=== PATIENT | female | born 1995 | race African-American/Black ===

== ENCOUNTER 2018-06-21 09:18 | Outpatient (CLI) | payer MEDICAID, SELFPAY ==
[2018-06-21 09:50] LABS: Abs Immature Grans 0.02 k/cumm (0.0-0.09); Absolute Basophil Count 0.02 k/cumm (0.0-0.2); Absolute Eosinophil Count 0.09 k/cumm (0.0-0.7); Absolute Monocyte Count 0.57 k/cumm (0.11-0.7); Absolute Neutrophil Count 5.74 k/cumm (1.2-6.7); Basophils % 0.3; Eosinophils % 1.2; HCT 37.8 % (36.0-46.0); Immature Grans % 0.3; Lymphocytes % 14.6; Mean Corp. HGB Concentration 31.7 g/dL (32.0-36.0); Mean Corpuscular Hemoglobin 25.1 pg (27.0-33.0); Mean Corpuscular Volume 78.9 fL (80-95); Mean Platelet Volume 11.8 fL (8.0-11.0); Monocytes % 7.6; Platelet Count 200 x1000/uL (130-400); RBC 4.79 m/cumm (4.00-5.20); RBC Distribution Width 13.6 % (11.7-14.6); Reticulocyte 1.3 % (0.5-2.4); White Blood Cell Count 7.54 k/cumm (4.4-10.8)
[2018-06-21 10:02] LABS: ALT 22 U/L (12-78); AST 14 U/L (15-37); Albumin 3.6 g/dL (3.4-5.0); Alkaline Phosphatase 73 U/L (46-116); Anion Gap 10.8 mmol/L (3-11); BUN 13 mg/dL (7-18); Bilirubin, Total 0.4 mg/dL (0.2-1.0); CO2 24.2 mmol/L (21.0-32.0); CREATININE 0.85 mg/dL (0.55-1.02); Calcium 8.5 mg/dL (8.5-10.1); Chloride 105 mmol/L (98-107); Glucose 95 mg/dL (70-100); LDH 142 U/L (81-234); Potassium 3.7 mmol/L (3.5-5.1); Sodium 140 mmol/L (136-145); Total Protein 6.3 g/dL (6.4-8.2)
== END 2018-06-21 09:19 ==
PROVIDERS: PCP Nurse Practitioner Family; Visit Provider Internal Medicine Hematology & Oncology
DX: D69.41 Evans syndrome (principal)
CPT/HCPCS: 36415; 80053; 83615; 85025; 85045

== ENCOUNTER 2018-07-19 10:44 | Emergency (ER) | payer MEDICAID, SELFPAY ==
[2018-07-19 10:48] VITALS: BP 123/98; PULSE 84; RESP 16; TEMP 36.6; O2SAT 99
--- NOTE | 2018-07-19 10:58 | DI.REPORT_ITS ---
SYMPTOMS/DIAGNOSIS: LT LOWER PELVIC PAIN PELVIC ULTRASOUND: A transabdominal and transvaginal examination was carried out. The uterus measures 9.3 cm in length, 4.4 cm in height and 5.3 cm in width with an endometrial stripe thickness of 7.3 mm. The right ovary measures 3.6 x 2.3 x 3.5 cm. The left ovary measures 4.3 x 3.0 x 3.6 cm. A small quantity of periovarian and cul-de-sac fluid is demonstrated. The kidneys are unremarkable. SUMMARY: Aside from a small amount of periovarian and cul-de-sac fluid, the examination is unremarkable.
--- NOTE | 2018-07-19 11:48 | DI.RPTCT_ITS ---
SYMPTOMS/DIAGNOSIS: LEFT LOWER QUADRANT ABDOMINAL PAIN, REPRODUCIBLE, NEGATIVE VAGINAL US CT EXAMINATION OF THE ABDOMEN AND PELVIS: The study was carried out with intravenous administration of 100 cc of Omnipaque 350 and oral ingestion of dilute barium. The lung bases are unremarkable. The liver and gallbladder are unremarkable. The pancreas is intact. Organomegaly is demonstrated. The kidneys and adrenals appear unremarkable. There is no evidence of bowel obstruction. No localized bowel abnormality is seen. The appendix is normal. The reproductive organs as visualized appear intact. The bladder is normal. A small quantity of free pelvic fluid is demonstrated. There is no evidence of intraperitoneal free air. There is no evidence of an aortic aneurysm. A tiny fat-containing umbilical hernia is demonstrated. The bony structures are unremarkable. There is a region of increased absorption projected over the subcutaneous fat in the mid portion of the lumbar spine, which could be related to a contusion. The examination is otherwise unremarkable. SUMMARY: Splenomegaly is demonstrated. There is a small quantity of free fluid in the pelvis. A nonspecific region of increased absorption is noted in the subcutaneous fat overlying the mid lumbar region.
[2018-07-19] MEDS: Normal Saline 1,000 ML 1000 ML IV (11:55)
[2018-07-19] MEDS: Omnipaque 350 MG/ML 50 ML BTL IJ (11:56)
[2018-07-19] MEDS: Breeza Beverage 473 ML BTL PO ×2 (11:56)
[2018-07-19 11:59] LABS: Abs Immature Grans 0.02 k/cumm (0.0-0.09); Absolute Basophil Count 0.02 k/cumm (0.0-0.2); Absolute Eosinophil Count 0.06 k/cumm (0.0-0.7); Absolute Lymphocyte Count 1.23 k/cumm (1.2-3.4); Absolute Monocyte Count 0.57 k/cumm (0.11-0.7); Absolute Neutrophil Count 5.78 k/cumm (1.2-6.7); Basophils % 0.3; Eosinophils % 0.8; HCT 35.1 % (36.0-46.0); HGB 10.9 g/dL (12.0-15.5); Immature Grans % 0.3; Mean Corp. HGB Concentration 31.1 g/dL (32.0-36.0); Mean Corpuscular Hemoglobin 23.7 pg (27.0-33.0); Mean Corpuscular Volume 76.5 fL (80-95); Mean Platelet Volume 12.6 fL (8.0-11.0); Monocytes % 7.4; Neutrophils % 75.2; Platelet Count 202 x1000/uL (130-400); RBC 4.59 m/cumm (4.00-5.20); RBC Distribution Width 14.6 % (11.7-14.6); White Blood Cell Count 7.68 k/cumm (4.4-10.8)
[2018-07-19 12:04] LABS: Bilirubin Negative (Negative); Blood Negative (Negative); Clarity Clear; Glucose Negative (Negative); Ketones Negative (Negative); Leukocyte Esterase Negative (Negative); Nitrite Negative (Negative); Specific Gravity 1.025 (1.005-1.025); Urobilinogen 0.2 EU/dL (Up TO 0.2)
[2018-07-19 12:11] LABS: ALT 18 U/L (12-78); AST 12 U/L (15-37); Albumin 3.4 g/dL (3.4-5.0); Alkaline Phosphatase 65 U/L (46-116); BUN 15 mg/dL (7-18); Bilirubin, Total 0.5 mg/dL (0.2-1.0); CREATININE 0.73 mg/dL (0.55-1.02); Calcium 8.3 mg/dL (8.5-10.1); Chloride 107 mmol/L (98-107); Glucose 90 mg/dL (70-100); Lipase 77 U/L (73-393); Potassium 3.8 mmol/L (3.5-5.1); Sodium 141 mmol/L (136-145); Total Protein 6.2 g/dL (6.4-8.2)
--- NOTE | 2018-07-19 13:01 | ED.GENADUL ---
Disposition Clinical Impression: Abdominal pain, PID (acute pelvic inflammatory disease) Disposition: HOME Condition: Good Instructions: Abdominal Pain (ED), Pelvic Inflammatory Disease (ED) Additional Instructions: Please take the antibiotics as directed. Please take Tylenol and Motrin for your pain. Please follow-up with your obstetrics aerial planting and cultivation manager as soon as possible for reassessment. Do not take any alcohol with the antibiotics. If you notice any worsening of your symptoms, or any new symptoms such as vomiting, diarrhea, fever, chills, shortness of breath, chest pain, numbness, weakness, or fainting , please return immediately to the emergency department for reevaluation. Please follow up with your primary care provider as soon as possible for reassessment and reevaluation. As always, it was a pleasure participating in your medical care today. Prescriptions: Acetaminophen [Tylenol Extra Strength] 1,000 mg PO Q6H 5 Days #60 tab Doxycycline [Vibramycin] 100 mg PO BID #21 cap Ibuprofen [Motrin Ib] 600 mg PO Q6H 5 Days #60 tablet MetroNIDAZOLE [Flagyl] 500 mg PO BID #21 tab Referrals: Alexus Cardenas [Primary Care Provider] - Medical Decision Making - Lab Data Laboratory Tests 07/19/18 07/19/18 07/19/18 11:00 11:50 11:50 WBC 7.68 RBC 4.59 Hgb 10.9 L Hct 35.1 L MCV 76.5 L MCH 23.7 L MCHC 31.1 L RDW 14.6 Plt Count 202 MPV 12.6 H Immature Gran % 0.3 Neutrophils % 75.2 Lymphocytes % 16.0 Monocytes % 7.4 Eosinophils % 0.8 Basophils % 0.3 Absolute Neutrophils 5.78 Absolute Lymphocytes 1.23 Absolute Monocytes 0.57 Absolute Eosinophils 0.06 Absolute Basophils 0.02 Sodium 141 Potassium 3.8 Chloride 107 Carbon Dioxide 28.0 Anion Gap 6.0 BUN 15 Creatinine 0.73 Estimated GFR/1.73 m2 >= 60.00 Glucose 90 Calcium 8.3 L Total Bilirubin 0.5 AST 12 L ALT 18 Alkaline Phosphatase 65 Total Protein 6.2 L Albumin 3.4 Lipase 77 Urine Color Yellow Urine Clarity Clear Urine pH 6.0 Ur Specific [place] 1.025 Urine Protein Negative Urine Ketones Negative Urine Blood Negative Urine Nitrite Negative Urine Bilirubin Negative Urine Urobilinogen 0.2 Ur Leukocyte Esterase Negative Urine Glucose Negative - Medical Decision Making This is a pleasant 22-year-old female who presents with left lower quadrant pain for the past 3 days as a sharp in nature comes and goes in severity. She has no associated urinary symptoms. Physical exam is concerning with her notable tenderness. Vaginal exam demonstrates minimal cervical motion tenderness, no significant discharge from the cervix. No adnexal tenderness. Ultrasound was performed by conversion worker and results per ultrasonography are no acute process, no cysts, minimal free fluid. No evidence of torsion or other abnormality. No tubo-ovarian abscess. No ectopic . Due to the patient's notable tenderness, we will get a CT scan to evaluate for any acute process, diverticulitis, abscess or appendicitis. 3 PM The patient's laboratory workup has returned benign. She has no white count, no significant leukocytosis. No significant electrolyte abnormality. [id number] is negative. No signs of urinary tract infection. Ultrasound was performed and demonstrated no acute process. CT scan was performed and per radiologist there is no acute process. No evidence of diverticulitis, appendicitis, acute trauma. A small amount of trace free fluid fluid in the pelvis. No evidence of abscess, or other acute pathology. The patient's pain is controlled here. With no signs of ectopic , tubo-ovarian abscess, or an acute abdominal pathology and feel her symptoms may be secondary to a medical etiology. Although she had the Flagyl cream, I feel she would benefit from oral Flagyl, as well as potential doxycycline. Her signs and symptoms concerning for pelvic inflammatory disease especially with her history of chlamydia in the past. We will start the patient on doxycycline and Flagyl for PID. I discussed with her the importance of close follow-up with her obstetrics aerial planting and cultivation manager as well as return for potential symptoms which could be concerning. We discussed all these red flags and the patient understands. I have extensively reviewed the treatment plan and discharge instructions with the patient. I have addressed all patient concerns at this time. The patient was made aware of what symptoms to monitor for that would warrant a return to the emergency department. Discussed the plan with the patient, they demonstrate verbal understanding and agreement with our assessment and plan at this time. History of Present Illness - General Chief complaint: Abd Prob Stated complaint: STOMACH PAINS Time Seen by Provider: 07/19/18 10:45 - History of Present Illness Initial comments: This is a pleasant 22-year-old female with a past medical history of Mitch syndrome, who is on rituximab, as well as a past surgical history of a , who presents today for 3 days of sharp left lower quadrant abdominal pain. It radiates somewhat to the right-hand side. She denies any increased urinary frequency, or dysuria or hematuria. She has had no associated vomiting or nausea. Her symptoms are worse when she is lying flat. Improved when she sits upright. The pain comes and goes in severity but remains always present. The patient was seen by her PCP on 07/05/18. She had some vaginal discharge at that time and she was given fluconazole, and per the patient metronidazole cream and 875 mg of amoxicillin. Per their records she was noted to have bacterial vaginosis at that time. Patient states that she is not sexually active. Patient also notes that she has been seen by her OB doctor at [facility] and her PCP for a small cervical lesion which has been evaluated and found to be benign. Patient has been taking Tylenol and Motrin with no significant improvement. The patient denies any recent surgeries, and any pertinent family history, or any IV or illicit drug use. She does state that she has a very distant history of chlamydia, but no other STDs. She has no other complaints at this time. - Related Data Albuterol Sulfate [Proair Respiclick] 90 mcg IH DAILY 04/11/18 Dexamethasone 40 mg PO DAILY 04/11/18 Folic Acid 1 mg PO DAILY 04/11/18 Glipizide [Glipizide ER] 2.5 mg PO DAILY 04/11/18 RITUXimab [Rituxan] 100 mg IV DIRECTED 04/11/18 Acetaminophen [Tylenol Extra Strength] 1,000 mg PO Q6H 5 Days #60 tab 07/19/18 Doxycycline [Vibramycin] 100 mg PO BID #21 cap 07/19/18 Ibuprofen [Motrin Ib] 600 mg PO Q6H 5 Days #60 tablet 07/19/18 MetroNIDAZOLE [Flagyl] 500 mg PO BID #21 tab 07/19/18 Allergies Allergy/AdvReac Type Severity Reaction Status Date / Time vancomycin Allergy Unverified 07/19/18 10:53 acetaminophen [From Percocet] AdvReac Unverified 07/19/18 10:53 oxycodone [From Percocet] AdvReac Unverified 07/19/18 10:53 Review of Systems Other: 10 point review of systems was performed, pertinent positives and negatives are noted in the history of present illness. Past Medical History - Past Medical History Medical history: asthma Surgical history: non-contributory, - Social History Alcohol use: none Drug use: none General Exam - Other Other exam information: 1.Const: Well-nourished, Well-developed, appearing stated age 2.Eyes: PERRL, no conjunctival injection, and symmetrical lids. 3.ENT: Atraumatic external nose and ears. Moist MM. Neck: Symmetric, trachea midline, No thyromegaly. 4.CVS: +S1/S2, No murmurs or gallops. Peripheral pulses 2+ and equal in all extremities. Brisk capillary refill in all extremities. 5.RESP: Unlabored respiratory effort. Clear to auscultation bilaterally. No wheezes rales or rhonchi 6.GI: Abdomen is soft, no guarding or rebound, notable tenderness in left lower quadrant on palpation. Mild tenderness in right lower quadrant. Notable reproducible pain in the left pelvic region on palpation. No significant flank tenderness on percussion. Negative obturator and psoas sign. 7.MSK: Normocephalic/Atraumatic, Extremities w/o deformity or ttp No cyanosis or clubbing, Normal movement of all extremities 8.Skin: Warm, Dry. No rashes or lesions. 9.Neuro: telephone directory distributor driver II-XII grossly intact. Sensation grossly intact, no focal neurologic deficits. 10.Psych: (AAO) x3. Appropriate mood and affect Genitourinary exam was performed with female nurse at bedside. The patient does demonstrate a small lesion at the high noon position on the cervix. It is small, white, and nontender. No other significant lesions on the cervix. No evidence of strawberry cervix, or purulent green discharge. Bimanual exam demonstrates no tenderness on the left or the right. Mild cervical motion tenderness on exam. Course Vital Signs - 24 hr 07/19/18 10:48 Temperature 36.6 C Pulse 84 Respiratory 16 Rate Blood Pressure 123/98 Pulse Oximetry 99
--- NOTE | 2018-07-19 13:05 | ED.GENADUL_ITS ---
Disposition Clinical Impression: Abdominal pain, PID (acute pelvic inflammatory disease) Disposition: HOME Condition: Good Instructions: Abdominal Pain (ED), Pelvic Inflammatory Disease (ED) Additional Instructions: Please take the antibiotics as directed. Please take Tylenol and Motrin for your pain. Please follow-up with your obstetrics travel ticketing reviewer as soon as possible for reassessment. Do not take any alcohol with the antibiotics. If you notice any worsening of your symptoms, or any new symptoms such as vomiting , diarrhea, fever, chills, shortness of breath, chest pain, numbness, weakness, or fainting , please return immediately to the emergency department for reevaluation. Please follow up with your primary care provider as soon as possible for reassessment and reevaluation. As always, it was a pleasure participating in your medical care today. Prescriptions: Acetaminophen [Tylenol Extra Strength] 1,000 mg PO Q6H 5 Days #60 tab Doxycycline [Vibramycin] 100 mg PO BID #21 cap Ibuprofen [Motrin Ib] 600 mg PO Q6H 5 Days #60 tablet MetroNIDAZOLE [Flagyl] 500 mg PO BID #21 tab Referrals: Alexus Cardenas [Primary Care Provider] - Medical Decision Making - Lab Data Laboratory Tests 07/19/18 07/19/18 07/19/18 11:00 11:50 11:50 WBC 7.68 RBC 4.59 Hgb 10.9 L Hct 35.1 L MCV 76.5 L MCH 23.7 L MCHC 31.1 L RDW 14.6 Plt Count 202 MPV 12.6 H Immature Gran % 0.3 Neutrophils % 75.2 Lymphocytes % 16.0 Monocytes % 7.4 Eosinophils % 0.8 Basophils % 0.3 Absolute Neutrophils 5.78 Absolute Lymphocytes 1.23 Absolute Monocytes 0.57 Absolute Eosinophils 0.06 Absolute Basophils 0.02 Sodium 141 Potassium 3.8 Chloride 107 Carbon Dioxide 28.0 Anion Gap 6.0 BUN 15 Creatinine 0.73 Estimated GFR/1.73 m2 >= 60.00 Glucose 90 Calcium 8.3 L Total Bilirubin 0.5 AST 12 L ALT 18 Alkaline Phosphatase 65 Total Protein 6.2 L Albumin 3.4 Lipase 77 Urine Color Yellow Urine Clarity Clear Urine pH 6.0 Ur Specific [place] 1.025 Urine Protein Negative Urine Ketones Negative Urine Blood Negative Urine Nitrite Negative Urine Bilirubin Negative Urine Urobilinogen 0.2 Ur Leukocyte Esterase Negative Urine Glucose Negative - Medical Decision Making This is a pleasant 22-year-old female who presents with left lower quadrant pain for the past 3 days as a sharp in nature comes and goes in severity. She has no associated urinary symptoms. Physical exam is concerning with her notable tenderness. Vaginal exam demonstrates minimal cervical motion tenderness, no significant discharge from the cervix. No adnexal tenderness. Ultrasound was performed by civil engineering assistant and results per ultrasonography are no acute process, no cysts, minimal free fluid. No evidence of torsion or other abnormality. No tubo-ovarian abscess. No ectopic . Due to the patient's notable tenderness, we will get a CT scan to evaluate for any acute process, diverticulitis, abscess or appendicitis. 3 PM The patient's laboratory workup has returned benign. She has no white count, no significant leukocytosis. No significant electrolyte abnormality. [id number] is negative. No signs of urinary tract infection. Ultrasound was performed and demonstrated no acute process. CT scan was performed and per radiologist there is no acute process. No evidence of diverticulitis, appendicitis, acute trauma. A small amount of trace free fluid fluid in the pelvis. No evidence of abscess, or other acute pathology. The patient's pain is controlled here. With no signs of ectopic , tubo- ovarian abscess, or an acute abdominal pathology and feel her symptoms may be secondary to a medical etiology. Although she had the Flagyl cream, I feel she would benefit from oral Flagyl, as well as potential doxycycline. Her signs and symptoms concerning for pelvic inflammatory disease especially with her history of chlamydia in the past. We will start the patient on doxycycline and Flagyl for PID. I discussed with her the importance of close follow-up with her obstetrics travel ticketing reviewer as well as return for potential symptoms which could be concerning. We discussed all these red flags and the patient understands. I have extensively reviewed the treatment plan and discharge instructions with the patient. I have addressed all patient concerns at this time. The patient was made aware of what symptoms to monitor for that would warrant a return to the emergency department. Discussed the plan with the patient, they demonstrate verbal understanding and agreement with our assessment and plan at this time. History of Present Illness - General Chief complaint: Abd Prob Stated complaint: STOMACH PAINS Time Seen by Provider: 07/19/18 10:45 - History of Present Illness Initial comments: This is a pleasant 22-year-old female with a past medical history of Mitch syndrome, who is on rituximab, as well as a past surgical history of a C- section, who presents today for 3 days of sharp left lower quadrant abdominal pain. It radiates somewhat to the right-hand side. She denies any increased urinary frequency, or dysuria or hematuria. She has had no associated vomiting or nausea. Her symptoms are worse when she is lying flat. Improved when she sits upright. The pain comes and goes in severity but remains always present. The patient was seen by her PCP on 07/05/18. She had some vaginal discharge at that time and she was given fluconazole, and per the patient metronidazole cream and 875 mg of amoxicillin. Per their records she was noted to have bacterial vaginosis at that time. Patient states that she is not sexually active. Patient also notes that she has been seen by her OB doctor at [facility] and her PCP for a small cervical lesion which has been evaluated and found to be benign. Patient has been taking Tylenol and Motrin with no significant improvement. The patient denies any recent surgeries, and any pertinent family history, or any IV or illicit drug use. She does state that she has a very distant history of chlamydia, but no other STDs. She has no other complaints at this time. - Related Data Albuterol Sulfate [Proair Respiclick] 90 mcg IH DAILY 04/11/18 Dexamethasone 40 mg PO DAILY 04/11/18 Folic Acid 1 mg PO DAILY 04/11/18 Glipizide [Glipizide ER] 2.5 mg PO DAILY 04/11/18 RITUXimab [Rituxan] 100 mg IV DIRECTED 04/11/18 Acetaminophen [Tylenol Extra Strength] 1,000 mg PO Q6H 5 Days #60 tab 07/19/18 Doxycycline [Vibramycin] 100 mg PO BID #21 cap 07/19/18 Ibuprofen [Motrin Ib] 600 mg PO Q6H 5 Days #60 tablet 07/19/18 MetroNIDAZOLE [Flagyl] 500 mg PO BID #21 tab 07/19/18 Allergies Allergy/AdvReac Type Severity Reaction Status Date / Time vancomycin Allergy Unverified 07/19/18 10:53 acetaminophen [From Percocet] AdvReac Unverified 07/19/18 10:53 oxycodone [From Percocet] AdvReac Unverified 07/19/18 10:53 Review of Systems Other: 10 point review of systems was performed, pertinent positives and negatives are noted in the history of present illness. Past Medical History - Past Medical History Medical history: asthma Surgical history: non-contributory, - Social History Alcohol use: none Drug use: none General Exam - Other Other exam information: 1.Const: Well-nourished, Well-developed, appearing stated age 2.Eyes: PERRL, no conjunctival injection, and symmetrical lids. 3.ENT: Atraumatic external nose and ears. Moist MM. Neck: Symmetric, trachea midline, No thyromegaly. 4.CVS: +S1/S2, No murmurs or gallops. Peripheral pulses 2+ and equal in all extremities. Brisk capillary refill in all extremities. 5.RESP: Unlabored respiratory effort. Clear to auscultation bilaterally. No wheezes rales or rhonchi 6.GI: Abdomen is soft, no guarding or rebound, notable tenderness in left lower quadrant on palpation. Mild tenderness in right lower quadrant. Notable reproducible pain in the left pelvic region on palpation. No significant flank tenderness on percussion. Negative obturator and psoas sign. 7.MSK: Normocephalic/Atraumatic, Extremities w/o deformity or ttp No cyanosis or clubbing, Normal movement of all extremities 8.Skin: Warm, Dry. No rashes or lesions. 9.Neuro: manager safe II-XII grossly intact. Sensation grossly intact, no focal neurologic deficits. 10.Psych: (AAO) x3. Appropriate mood and affect Genitourinary exam was performed with female nurse at bedside. The patient does demonstrate a small lesion at the high noon position on the cervix. It is small, white, and nontender. No other significant lesions on the cervix. No evidence of strawberry cervix, or purulent green discharge. Bimanual exam demonstrates no tenderness on the left or the right. Mild cervical motion tenderness on exam. Course Vital Signs - 24 hr 07/19/18 10:48 Temperature 36.6 C Pulse 84 Respiratory 16 Rate Blood Pressure 123/98 Pulse Oximetry 99
[2018-07-19] MEDS: Omnipaque 350 MG/ML 100 ML BTL IJ (14:04)
[2018-07-19] MEDS: Lidocaine 1% Multi-Dose 50 ML VIAL (15:20)
[2018-07-19] MEDS: cefTRIAXone 250 MG VIAL IM (15:20)
[2018-07-19 15:35] VITALS: BP 98/55; PULSE 66; RESP 16; TEMP 36.5; O2SAT 98
[2018-07-19 17:27] LABS: Reticulocyte 1.8 % (0.5-2.4)
[2018-07-19 17:33] LABS: Iron 26 ug/dL (50-175); Total Iron Binding Capacity 412 ug/dL (250-450); Transferrin Sat 6 % (15-50)
[2018-07-19 17:56] LABS: Ferritin 12 ng/mL (8-388)
[2018-07-19 18:08] LABS: LDH 282 U/L (81-234)
[2018-07-20 13:54] LABS: Chlamydia Result Negative; GC Result Negative; Specimen Description CERVIX
== END 2018-07-19 15:29 | disposition home or self-care (01) ==
PROVIDERS: Internal Medicine Hematology & Oncology; Emergency Provider Student in an Organized Health Care Education/Training Program; PCP Nurse Practitioner Family
DX: R10.32 Left lower quadrant pain (principal); N76.0 Acute vaginitis; B96.89 Other specified bacterial agents as the cause of diseases classified elsewhere; D69.41 Evans syndrome; D59.1 Other autoimmune hemolytic anemias
CPT/HCPCS: 36415; 80053; 81025; 83690; 87491; 87591; 96361; 96372; 96374; 99285; 74177; 76830; 76856; 81003; 82728; 83540; 83550; 83615; 85025; 85045; 87480; 87510; 87660; 99284; J0696; J2405; J3490; Q9967

== ENCOUNTER 2018-08-02 14:32 | Outpatient (CLI) | payer MEDICAID, SELFPAY ==
[2018-08-02 14:57] LABS: Abs Immature Grans 0.03 k/cumm (0.0-0.09); Absolute Basophil Count 0.01 k/cumm (0.0-0.2); Absolute Lymphocyte Count 1.58 k/cumm (1.2-3.4); Absolute Monocyte Count 0.57 k/cumm (0.11-0.7); Absolute Neutrophil Count 6.26 k/cumm (1.2-6.7); Basophils % 0.1; Eosinophils % 1.2; HGB 11.1 g/dL (12.0-15.5); Immature Grans % 0.4; Lymphocytes % 18.5; Mean Corp. HGB Concentration 31.7 g/dL (32.0-36.0); Mean Corpuscular Hemoglobin 23.6 pg (27.0-33.0); Mean Corpuscular Volume 74.3 fL (80-95); Mean Platelet Volume 10.4 fL (8.0-11.0); Monocytes % 6.7; Neutrophils % 73.1; Platelet Count 199 x1000/uL (130-400); RBC 4.71 m/cumm (4.00-5.20); RBC Distribution Width 15.5 % (11.7-14.6); Reticulocyte 1.6 % (0.5-2.4); White Blood Cell Count 8.55 k/cumm (4.4-10.8)
[2018-08-02 15:10] LABS: ALT 20 U/L (12-78); AST 13 U/L (15-37); Albumin 3.5 g/dL (3.4-5.0); Alkaline Phosphatase 64 U/L (46-116); Anion Gap 8.6 mmol/L (3-11); BUN 17 mg/dL (7-18); Bilirubin, Total 0.5 mg/dL (0.2-1.0); CO2 25.4 mmol/L (21.0-32.0); CREATININE 0.75 mg/dL (0.55-1.02); Calcium 8.4 mg/dL (8.5-10.1); Chloride 109 mmol/L (98-107); Glucose 101 mg/dL (70-100); LDH 134 U/L (81-234); Potassium 3.6 mmol/L (3.5-5.1); Sodium 143 mmol/L (136-145); Total Protein 6.2 g/dL (6.4-8.2)
== END 2018-08-02 14:52 ==
PROVIDERS: PCP Nurse Practitioner Family; Visit Provider Internal Medicine Hematology & Oncology
DX: D69.41 Evans syndrome (principal)
CPT/HCPCS: 36415; 80053; 83615; 85025; 85045

== ENCOUNTER 2018-08-16 09:17 | Emergency (ER) | payer MEDICAID, SELFPAY ==
[2018-08-16 09:24] VITALS: BP 131/87; PULSE 71; RESP 18; TEMP 36.4; O2SAT 98
--- NOTE | 2018-08-16 09:39 | W.ED.GENAD ---
Discharge Plan Disposition Patient Disposition: HOME Condition: Fair Discharge Details Chief Complaint: EarProblem Clinical Impression: Acute upper respiratory infection Primary Care Provider: Alexus Cardenas ED Provider: Asha Small Home Meds and New Rx's Prescriptions: Continue ferrous sulfate [Feosol] 325 mg (65 mg iron) tablet 325 mg PO DAILY RF: 0 fluconazole [Diflucan] 150 mg tablet 150 mg PO ONCE Qty: 1 RF: 0 folic acid 1 MG tablet 1 mg PO DAILY RF: 0 albuterol sulfate [ProAir RespiClick] 90 MCG aerosol powdr breath activated 90 mcg Inhalation DAILY RF: 0 Discharge Instructions Instructions: Upper Respiratory Infection (ED) Additional Instructions: Encourage hydration. Tylenol and/or ibuprofen as needed for discomfort. Afrin 2-3 sprays to each nostril 2 times per day. Do not use this more than 30 days. Please follow-up with primary care if symptoms persist over the past week. If you develop difficulty breathing, shortness of breath, blood pressure chest pain or other new/worsening symptoms please seek care emergently once again. Referrals: Alexus Cardenas [Primary Care Provider] - Discharge Data Discharge Date/Time-TO BE ENTERED AT DEPARTURE: 08/16/18 10:25 Medical Decision Making Patient presents today for chief complaint of upper respiratory symptoms. Primarily concerned with right ear pain that began this morning. On exam, right tympanic membrane is mildly erythematous with no bulging, no loss of landmarks. Her history of congestion, sinus discomfort is more concerning for eustachian tube dysfunction associated with nasal congestion. Patient will be treated with Afrin. Lungs are clear on exam. Patient's breathing unlabored. Vital signs within normal limits.Advised that her symptoms point toward viral source. Advised f/u [facility] PCP in one week if not improving. Discussed new/worsening symptoms and when to seek care urgnetly once again. All of her questions and concerns were addressed, she is in agreement with sivan marie. HPI General Mode of arrival: ambulatory. Date/Time Provider Initiated Documentation: 08/16/18 09:30. Limitations to Documentation: no limitations. Information obtained by: patient. HPI Narrative: Patient is a 22-year-old female presenting today with chief complaint of sinus congestion, rhinorrhea, cough and right ear discomfort. She reports her symptoms began approximately 1 week ago. Had not been having any ear discomfort to this morning. Awoke this morning with her right ear feeling plugged. Denies any fevers or chills. Denies any GI upset. Patient is currently menstruating. Related Data Home Medications Medication Instructions Recorded Confirmed albuterol sulfate [ProAir 90 mcg INHALATION DAILY 04/11/18 08/03/18 RespiClick] folic acid 1 mg PO DAILY 04/11/18 08/03/18 ferrous sulfate 325 mg (65 mg 325 mg PO DAILY tab 08/03/18 08/03/18 iron) tablet fluconazole 150 mg tablet 150 mg PO ONCE #1 tab 08/03/18 08/03/18 Previous Rx's Medication Instructions Recorded fluconazole 150 mg tablet 150 mg PO ONCE #1 tab 08/03/18 Allergies Allergy/AdvReac Type Severity Reaction Status Date / Time vancomycin Allergy Unverified 08/03/18 15:10 acetaminophen [From Percocet] AdvReac Unverified 08/03/18 15:10 oxycodone [From Percocet] AdvReac Unverified 08/03/18 15:10 General Stated Complaint: EarProblem WILBERT: 3 Review of Systems Constitutional Reports as per HPI, Denies chills, Denies fever(s), Denies headache(s) and Denies malaise Eyes Denies eye discharge and Denies itchy eyes ENT Reports as per HPI, Denies vertigo and Denies headache(s) Cardiovascular Denies chest pain and Denies dyspnea Respiratory Reports as per HPI, Reports chest congestion, Reports cough, Denies hemoptysis, Denies dyspnea and Denies wheezing Gastrointestinal Denies change in stool character, Denies diarrhea, Denies nausea and Denies vomiting Integumentary/Breasts Denies rash Neurologic Denies vertigo and Denies headache(s) Allergic/Immunologic Denies itchy eyes and Denies wheezing PFSH Family History Other Breast CA Diabetes Medical History Pelvic pain in female (Acute) Menometrorrhagia (Acute) Hemolytic anemia (Acute) Solomon syndrome (Acute) Social History Smoking/Tobacco Use Status: Never Surgical History Previous section (Chronic) Female Reproductive History Menstrual Age of Menarche: 10 control method: none Ab spontaneous: 3 Exam Const General: cooperative, healthy appearing, comfortable, no acute distress, well developed and well groomed Nutritional Appearance: average body habitus and well nourished Orientation: alert and awake [facility] Head: normal to inspection and normocephalic Ears: hearing grossly normal bilaterally, external ears normal, TM's abnormal bilaterally (patient has mild erythema of the right TM. No bulging, no loss of landmarks) and mastoids normal General nose exam: external nose normal Face and sinus: sinus tenderness maxillary; not frontal Mouth: oral mucosae normal, lip normal, tongue normal, oropharynx normal, moist mucous membranes, no muffled voice and no trismus Teeth and gingiva: dentition normal Throat: posterior oropharynx normal, tonsils normal and uvula midline Eyes General: appearance normal, both eyes and all related structures Neck Neck: normal visual inspection and no lymphadenopathy Resp Effort & Inspection: normal respiratory effort, able to speak in complete sentences and no respiratory distress Auscultation: clear to auscultation bilaterally, no rales, no rhonchi and no wheezes Cardio Rate: regular rate Rhythm: regular rhythm Heart Sounds: S1 normal and S2 normal Skin General skin exam: no rashes or lesions noted Neuro General: alert and awake Cognition: normal cognition Speech: speech normal Gait: normal gait Psych Appearance: grossly normal and well kempt Mental Status: mental status grossly normal Speech and Movement: speech and movement normal Course Vital Signs Temperature 36.4 C L 08/16/18 09:24 Pulse 71 08/16/18 09:24 Respiratory Rate 18 08/16/18 09:24 Blood Pressure 131/87 08/16/18 09:24 Pulse Oximetry 98 08/16/18 09:24 Temperature 36.4 C L 08/16/18 09:24 Temperature Source Skin 08/16/18 09:24 Pulse 71 08/16/18 09:24 Respiratory Rate 18 08/16/18 09:24 Blood Pressure 131/87 08/16/18 09:24 Blood Pressure Position Sitting 08/16/18 09:24 Pulse Oximetry 98 08/16/18 09:24 Oxygen Delivery Method Room Air 08/16/18 09:24 Oxygen Flow Rate 0 08/16/18 09:24
--- NOTE | 2018-08-16 09:56 | ED.GENADUL_ITS ---
Discharge Plan Disposition Patient Disposition: HOME Condition: Fair Discharge Details Chief Complaint: EarProblem Clinical Impression: Acute upper respiratory infection Primary Care Provider: Alexus Cardenas ED Provider: Asha Small Home Meds and New Rx's Prescriptions: Continue ferrous sulfate [Feosol] 325 mg (65 mg iron) tablet 325 mg PO DAILY RF: 0 fluconazole [Diflucan] 150 mg tablet 150 mg PO ONCE Qty: 1 RF: 0 folic acid 1 MG tablet 1 mg PO DAILY RF: 0 albuterol sulfate [ProAir RespiClick] 90 MCG aerosol powdr breath activated 90 mcg Inhalation DAILY RF: 0 Discharge Instructions Instructions: Upper Respiratory Infection (ED) Additional Instructions: Encourage hydration. Tylenol and/or ibuprofen as needed for discomfort. Afrin 2-3 sprays to each nostril 2 times per day. Do not use this more than 30 days. Please follow-up with primary care if symptoms persist over the past week. If you develop difficulty breathing, shortness of breath, blood pressure chest pain or other new/worsening symptoms please seek care emergently once again. Referrals: Alexus Cardenas [Primary Care Provider] - Discharge Data Discharge Date/Time-TO BE ENTERED AT DEPARTURE: 08/16/18 10:25 Medical Decision Making Patient presents today for chief complaint of upper respiratory symptoms. Primarily concerned with right ear pain that began this morning. On exam, right tympanic membrane is mildly erythematous with no bulging, no loss of landmarks. Her history of congestion, sinus discomfort is more concerning for eustachian tube dysfunction associated with nasal congestion. Patient will be treated with Afrin. Lungs are clear on exam. Patient's breathing unlabored. Vital signs within normal limits.Advised that her symptoms point toward viral source. Advised f/u [facility] PCP in one week if not improving. Discussed new/ worsening symptoms and when to seek care urgnetly once again. All of her questions and concerns were addressed, she is in agreement with sivan marie. HPI General Mode of arrival: ambulatory . Date/Time Provider Initiated Documentation: 08/16/18 09:30 . Limitations to Documentation: no limitations . Information obtained by: patient . HPI Narrative: Patient is a 22-year-old female presenting today with chief complaint of sinus congestion, rhinorrhea, cough and right ear discomfort. She reports her symptoms began approximately 1 week ago. Had not been having any ear discomfort to this morning. Awoke this morning with her right ear feeling plugged. Denies any fevers or chills. Denies any GI upset. Patient is currently menstruating. Related Data Home Medications Medication Instructions Recorded Confirmed albuterol sulfate [ProAir 90 mcg INHALATION DAILY 04/11/18 08/03/18 RespiClick] folic acid 1 mg PO DAILY 04/11/18 08/03/18 ferrous sulfate 325 mg (65 mg 325 mg PO DAILY tab 08/03/18 08/03/18 iron) tablet fluconazole 150 mg tablet 150 mg PO ONCE #1 tab 08/03/18 08/03/18 Previous Rx's Medication Instructions Recorded fluconazole 150 mg tablet 150 mg PO ONCE #1 tab 08/03/18 Allergies Allergy/AdvReac Type Severity Reaction Status Date / Time vancomycin Allergy Unverified 08/03/18 15:10 acetaminophen [From Percocet] AdvReac Unverified 08/03/18 15:10 oxycodone [From Percocet] AdvReac Unverified 08/03/18 15:10 General Stated Complaint: EarProblem WILBERT: 3 Review of Systems Constitutional Reports as per HPI, Denies chills, Denies fever(s), Denies headache(s) and Denies malaise Eyes Denies eye discharge and Denies itchy eyes ENT Reports as per HPI, Denies vertigo and Denies headache(s) Cardiovascular Denies chest pain and Denies dyspnea Respiratory Reports as per HPI, Reports chest congestion, Reports cough, Denies hemoptysis, Denies dyspnea and Denies wheezing Gastrointestinal Denies change in stool character, Denies diarrhea, Denies nausea and Denies vomiting Integumentary/Breasts Denies rash Neurologic Denies vertigo and Denies headache(s) Allergic/Immunologic Denies itchy eyes and Denies wheezing PFSH Family History Other Breast CA Diabetes Medical History Pelvic pain in female (Acute) Menometrorrhagia (Acute) Hemolytic anemia (Acute) Solomon syndrome (Acute) Social History Smoking/Tobacco Use Status: Never Surgical History Previous section (Chronic) Female Reproductive History Menstrual Age of Menarche: 10 control method: none Ab spontaneous: 3 Exam Const General: cooperative, healthy appearing, comfortable, no acute distress, well developed and well groomed Nutritional Appearance: average body habitus and well nourished Orientation: alert and awake [facility] Head: normal to inspection and normocephalic Ears: hearing grossly normal bilaterally, external ears normal, TM's abnormal bilaterally (patient has mild erythema of the right TM. No bulging, no loss of landmarks) and mastoids normal General nose exam: external nose normal Face and sinus: sinus tenderness maxillary; not frontal Mouth: oral mucosae normal, lip normal, tongue normal, oropharynx normal, moist mucous membranes, no muffled voice and no trismus Teeth and gingiva: dentition normal Throat: posterior oropharynx normal, tonsils normal and uvula midline Eyes General: appearance normal, both eyes and all related structures Neck Neck: normal visual inspection and no lymphadenopathy Resp Effort & Inspection: normal respiratory effort, able to speak in complete sentences and no respiratory distress Auscultation: clear to auscultation bilaterally, no rales, no rhonchi and no wheezes Cardio Rate: regular rate Rhythm: regular rhythm Heart Sounds: S1 normal and S2 normal Skin General skin exam: no rashes or lesions noted Neuro General: alert and awake Cognition: normal cognition Speech: speech normal Gait: normal gait Psych Appearance: grossly normal and well kempt Mental Status: mental status grossly normal Speech and Movement: speech and movement normal Course Vital Signs Temperature 36.4 C L 08/16/18 09:24 Pulse 71 08/16/18 09:24 Respiratory Rate 18 08/16/18 09:24 Blood Pressure 131/87 08/16/18 09:24 Pulse Oximetry 98 08/16/18 09:24 Temperature 36.4 C L 08/16/18 09:24 Temperature Source Skin 08/16/18 09:24 Pulse 71 08/16/18 09:24 Respiratory Rate 18 08/16/18 09:24 Blood Pressure 131/87 08/16/18 09:24 Blood Pressure Position Sitting 08/16/18 09:24 Pulse Oximetry 98 08/16/18 09:24 Oxygen Delivery Method Room Air 08/16/18 09:24 Oxygen Flow Rate 0 08/16/18 09:24
== END 2018-08-16 10:25 | disposition home or self-care (01) ==
PROVIDERS: Emergency Provider Physician Assistant; PCP Nurse Practitioner Family
DX: J06.9 Acute upper respiratory infection, unspecified (principal)
CPT/HCPCS: 99282

== ENCOUNTER 2018-08-29 01:16 | Outpatient (CLI) | payer MEDICAID, SELFPAY ==
--- NOTE | 2018-08-29 14:47 | DI.US_ITS ---
SYMPTOMS/DIAGNOSIS: PELVIC AND PERINEAL PAIN, R10.2 PELVIC ULTRASOUND: Transabdominal and transvaginal examination was performed. The uterus measures 7.4 cm long x 4.2 cm AP x 3.4 cm transverse. The endometrial stripe is within normal limits at 0.4 cm. No myometrial mass is identified. The right ovary measures 2.7 x 1.9 x 2.3 cm. There are several follicular cysts present. There is normal blood flow to the right ovary. The left ovary measures 3.3 x 2 x 2 cm with multiple small follicular cysts. There is normal blood flow. No torsion or solid mass is seen. No free pelvic fluid or hydronephrosis is identified. IMPRESSION: Negative pelvic ultrasound.
== END 2018-08-29 01:36 ==
PROVIDERS: PCP Nurse Practitioner Family; Visit Provider Nurse Practitioner Women's Health
DX: R10.2 Pelvic and perineal pain (principal); N83.01 Follicular cyst of right ovary; N83.02 Follicular cyst of left ovary
CPT/HCPCS: 76830; 76856

== ENCOUNTER 2018-12-05 10:36 | Outpatient (REF) | payer MEDICAID, SELFPAY ==
[2018-12-05 13:39] LABS: HCT 38.5 % (36.0-46.0); HGB 12.1 g/dL (12.0-15.5); Mean Corp. HGB Concentration 31.4 g/dL (32.0-36.0); Mean Corpuscular Hemoglobin 23.7 pg (27.0-33.0); Mean Corpuscular Volume 75.3 fL (80-95); RBC 5.11 m/cumm (4.00-5.20); RBC Distribution Width 17.1 % (11.7-14.6)
[2018-12-05 13:46] LABS: ALT 29 U/L (12-78); AST 22 U/L (15-37); Albumin 3.6 g/dL (3.4-5.0); Alkaline Phosphatase 78 U/L (46-116); Anion Gap 11.2 mmol/L (3-11); BUN 16 mg/dL (7-18); Bilirubin, Total 0.4 mg/dL (0.2-1.0); CO2 23.8 mmol/L (21.0-32.0); CREATININE 0.68 mg/dL (0.55-1.02); Calcium 8.4 mg/dL (8.5-10.1); Chloride 106 mmol/L (98-107); Glucose 89 mg/dL (70-100); LDH 176 U/L (81-234); Potassium 4.3 mmol/L (3.5-5.1); Sodium 141 mmol/L (136-145); Total Protein 5.9 g/dL (6.4-8.2)
[2018-12-05 14:24] LABS: Platelet Count 172 x1000/uL (130-400)
== END 2018-12-05 10:56 ==
LOC: NCHCN 10:36
PROVIDERS: PCP Nurse Practitioner Family; Visit Provider Nurse Practitioner Family
DX: D69.41 Evans syndrome (principal)
CPT/HCPCS: 80053; 85027; 83615

== ENCOUNTER 2018-12-29 10:56 | Outpatient (REF) | payer MEDICAID, SELFPAY ==
[2018-12-29 12:53] LABS: Iron 27 ug/dL (50-175); Total Iron Binding Capacity 363 ug/dL (250-450); Transferrin Sat 7 % (15-50)
[2018-12-29 12:54] LABS: Abs Immature Grans 0.03 k/cumm (0.0-0.09); Absolute Basophil Count 0.01 k/cumm (0.0-0.2); Absolute Eosinophil Count 0.19 k/cumm (0.0-0.7); Absolute Lymphocyte Count 0.85 k/cumm (1.2-3.4); Absolute Monocyte Count 0.48 k/cumm (0.11-0.7); Absolute Neutrophil Count 4.65 k/cumm (1.2-6.7); Basophils % 0.2; Eosinophils % 3.1; HCT 34.2 % (36.0-46.0); HGB 10.3 g/dL (12.0-15.5); Immature Grans % 0.5; Lymphocytes % 13.7; Mean Corp. HGB Concentration 30.1 g/dL (32.0-36.0); Mean Corpuscular Hemoglobin 23.6 pg (27.0-33.0); Mean Corpuscular Volume 78.4 fL (80-95); Monocytes % 7.7; Neutrophils % 74.8; Platelet Count 184 x1000/uL (130-400); RBC 4.36 m/cumm (4.00-5.20); RBC Distribution Width 16.7 % (11.7-14.6); Reticulocyte 2.5 % (0.5-2.4); White Blood Cell Count 6.21 k/cumm (4.4-10.8)
[2018-12-29 13:08] LABS: ALT 19 U/L (12-78); AST 16 U/L (15-37); Albumin 3.3 g/dL (3.4-5.0); Alkaline Phosphatase 74 U/L (46-116); Anion Gap 10.2 mmol/L (3-11); BUN 13 mg/dL (7-18); Bilirubin, Total 0.5 mg/dL (0.2-1.0); CO2 26.8 mmol/L (21.0-32.0); CREATININE 0.74 mg/dL (0.55-1.02); Calcium 8.4 mg/dL (8.5-10.1); Chloride 108 mmol/L (98-107); Ferritin 25 ng/mL (8-388); Glucose 86 mg/dL (70-100); Potassium 4.1 mmol/L (3.5-5.1); Sodium 145 mmol/L (136-145); Total Protein 5.7 g/dL (6.4-8.2)
[2019-01-01 11:29] LABS: Transferrin 256 mg/dL (201-352)
== END 2018-12-29 11:16 ==
LOC: NCHCN 10:56
PROVIDERS: PCP Nurse Practitioner Family; Visit Provider Nurse Practitioner Family
DX: D69.41 Evans syndrome (principal); N94.6 Dysmenorrhea, unspecified; J45.20 Mild intermittent asthma, uncomplicated
CPT/HCPCS: 80053; 82728; 83540; 83550; 84466; 85025; 85045

== ENCOUNTER 2019-02-05 12:27 | Emergency (ER) | payer MEDICAID, SELFPAY ==
[2019-02-05 12:43] VITALS: BP 102/65; PULSE 74; RESP 16; TEMP 36.4; O2SAT 95
--- NOTE | 2019-02-05 13:36 | W.ED.GENAD ---
Discharge Plan Disposition Patient Disposition: HOME Condition: Stable Discharge Details Chief Complaint: HEAD OF ACADEMIC TECHNOLOGY Clinical Impression: Vaginal ulceration, Intranasal ulcer Reason For Visit: vaginal sores Primary Care Provider: Alexus Cardenas ED Provider: Felisa Reeves Home Meds and New Rx's Prescriptions: New famciclovir 250 mg tablet 250 mg PO TID Qty: 30 RF: 0 Continued ferrous sulfate [Feosol] 325 mg (65 mg iron) tablet 325 mg PO DAILY RF: 0 sertraline 50 mg tablet 50 mg PO DAILY RF: 0 folic acid 1 MG tablet 1 mg PO DAILY RF: 0 ProAir RespiClick 90 MCG aerosol powdr breath activated 90 mcg Inhalation DAILY RF: 0 Discharge Instructions Instructions: Genital Herpes Simplex (ED), Urinary Tract Infection in Women (ED) Additional Instructions: Please return immediately to the emergency department if you develop any new or worsening symptoms or if you become otherwise concerned. It is extremely important that you make an appointment to be seen in follow-up for this visit by Dr. Contreras, by your earth science technical officer and also by your primary care doctor. Referrals: Alexus Cardenas [Primary Care Provider] - Discharge Data Discharge Date/Time-TO BE ENTERED AT DEPARTURE: 02/05/19 16:00 Medical Decision Making Yaneli Becker is a 33-year-old woman with history of Down syndrome who presented to the emergency department with painful sores on the inside of her nose and outside of her posterior vagina since yesterday without other associated symptoms. On exam patient has intranasal ulcerations bilaterally, ulceration and vesicles to bilateral posterior labia, and 3-4 mm round abnormality of the cervix. Patient reports that she has discussed cervical abnormality with earth science technical officer before, who have told her not to worry about it. Concern for likely HSV versus other rheumatologic process causing ulcerations, benign versus neoplastic process of the cervix. Because of the vaginal culture sent, Chlamydia gonorrhea cervical culture sent, vaginal Pap screening sent. I did discuss patient with hematology oncology [facility], who states that ulcerations are not related directly to Solomon syndrome. Patient declined to wait for rheumatology consult and vag path screen results, and would prefer to follow-up as an outpatient. Declined empiric treatment for chlamydia/gonorrhea at this time, would prefer to wait for cultures. No urinary symptoms, will hold antibiotics for UTI and await culture results. Plan for outpatient follow-up with PCP, gynecology for cervical lesion as well as vaginal ulcerations. Plan to start famciclovir for suspected HSV. I had a lengthy discussion with the patient regarding home care, return to emergency department cautions, safe sex practices. Patient was discharged with clear plan for outpatient follow-up. Patient verbalized understanding of the plan was amenable. All questions were answered. Medical Records Medical records reviewed: Yes I reviewed the patient's medical records. Lab Data Lab results reviewed: Yes I reviewed the patient's lab results. HPI General Mode of arrival: ambulatory. Date/Time Provider Initiated Documentation: 02/05/19 13:35. Limitations to Documentation: no limitations. Information obtained by: patient, RN notes reviewed and old records reviewed. 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 Patient reports that yesterday she noticed pain at the posterior aspect of her external vagina, much worse with urination. Patient reports that it feels like she has sores on the skin in that area. She reports pain as sharp and stabbing. She denies burning pain near the urethra with urination, frequency, or urgency. She denies abdominal pain or any other pain. No unusual vaginal discharge. No fevers. Patient reports that she feels otherwise in her usual state of health, no recent illnesses, has been eating and drinking as usual. Patient reports that she has been sexually active with her , who was released from [facility] 1 week ago. Patient also reports that since noticing the vaginal pain, she has also had painful sores in the inside of her nose. Has never had either of these symptoms in the past. No known exposures, no other skin rash. Related Data Home Medications Medication Instructions Recorded Confirmed ProAir RespiClick 90 mcg INHALATION DAILY 04/11/18 02/05/19 folic acid 1 mg PO DAILY 04/11/18 02/05/19 ferrous sulfate 325 mg (65 mg 325 mg PO DAILY tab 08/03/18 02/05/19 iron) tablet sertraline 50 mg tablet 50 mg PO DAILY 08/25/18 02/05/19 famciclovir 250 mg PO TID #30 tab 02/05/19 Previous Rx's Medication Instructions Recorded famciclovir 250 mg PO TID #30 tab 02/05/19 Allergies Allergy/AdvReac Type Severity Reaction Status Date / Time vancomycin Allergy Unverified 02/05/19 12:48 oxycodone [From Percocet] AdvReac Unverified 02/05/19 12:48 General Stated Complaint: HEAD OF ACADEMIC TECHNOLOGY WILBERT: 4 Review of Systems Review of Systems Constitutional: denies fevers Eyes: denies eye pain ENT: denies facial pain, dental pain, sore throat, reports nasal skin changes as per HPI Cardiovascular: denies chest pain Respiratory: denies SOB, cough GI: denies abdominal pain, vomiting, diarrhea : denies flank pain, dysuria, reports pain to external genitals MSK: denies back pain, neck pain, arthralgias, myalgias Skin: denies rash Neuro: denies headaches, numbness, weakness PFSH Medical History Pelvic pain in female (Acute) Menometrorrhagia (Acute) Hemolytic anemia (Acute) Solomon syndrome (Acute) Family History Other Breast CA Diabetes Social History Smoking/Tobacco Use Status: Never Alcohol Intake: never Drug use: Never Substance use type: does not use Do you feel safe at home: Yes Do you feel safe in your relationship?: Yes Female Reproductive History Menstrual Age of Menarche: 10 control method: none History History 5 Para Hx # Term Pregnancies 1 Multiple births Hx # Pregnancies 1 Ectopic pregnancies AB induced Hx Number of Living Children AB spontaneous Exam Narrative Exam Narrative: Constitutional: well and [id number], pleasant, conversing normally HENT: head atraumatic/normocephalic/normal inspection, mucous membranes moist, peripheral nonvesicular ulcerations to the lateral intranasal mucosa bilaterally without external skin changes. Intraoral mucosa normal without lesion. Eyes: conjunctiva normal, sclera normal, pupils 3mm b/l Neck: no stridor, normal ROM, trachea midline Chest: normal inspection Resp: normal work of breathing, LCTAB Cardio: normal rate, normal rhythm, no murmur appreciated GI: abdomen soft, non-tender, non-distended : Painful ulceration of the outer labia at the 5 o'clock position, small grouped vesicles of the outer labia at the 7 o'clock position. These are tender and pain is reproduced with palpation. Speculum exam reveals moderate amount of thin white discharge, cervix shows 3-4 mm round abnormality at the 3 o'clock position. There is no cervical motion tenderness, no uterine or adnexal tenderness or fullness. Skin: warm, dry, normal color, no rash Neuro: alert, not altered, grossly non-focal, normal tone Ext: no edema Psych: normal mood, normal affect, normal behavior Course Vital Signs Temperature 36.4 C L 02/05/19 12:43 Pulse 74 02/05/19 12:43 Respiratory Rate 16 02/05/19 12:43 Blood Pressure 102/65 02/05/19 12:43 Pulse Oximetry 95 02/05/19 12:43 Temperature 36.4 C L 02/05/19 12:43 Temperature Source Temporal Artery Scan 02/05/19 12:43 Pulse 74 02/05/19 12:43 Respiratory Rate 16 02/05/19 12:43 Blood Pressure 102/65 02/05/19 12:43 Pulse Oximetry 95 02/05/19 12:43 Oxygen Delivery Method Room Air 02/05/19 12:43 Oxygen Flow Rate 0 02/05/19 12:43
[2019-02-05 13:53] LABS: Bilirubin Negative (Negative); Blood Negative (Negative); Clarity Sl Cloudy; Glucose Negative (Negative); Ketones Negative (Negative); Leukocyte Esterase Small (Negative); Nitrite Negative (Negative); Urobilinogen 0.2 EU/dL (Up TO 0.2); pH 7.5 (5-8)
[2019-02-05 14:10] LABS: Bacteria Few HPF (Negative); C & S Indicated? Yes; Casts Negative LPF (Negative); Crystals Negative HPF (Negative); Epithelial Cells Few HPF (Negative); Mucus Trace (Negative); RBC 0-2 (0-2); WBC 20-50 HPF (0-5)
--- NOTE | 2019-02-05 16:22 | NUR.NOTE ---
Nursing Note: Yaneli had to go to [place] to get her children off the [place]--did not wait for med from pharmacy.---did have a prescription to fill.
--- NOTE | 2019-02-06 10:18 | PDOC.ERCMPRO ---
Care Management Progress Note 02/06-Dr. Bijal Reeves requested assistance with a PCP (Theresa) f/u for ?BV recheck/f/u ED visit. Patient is being treated for hemolytic anemia. Referral faxed to [facility] this am.
[2019-02-07 13:31] LABS: HSV 1 DNA Result Negative
[2019-02-07 15:30] LABS: Chlamydia Result Negative; GC Result Negative; Specimen Description CERVIX
[2019-02-07 16:19] LABS: HSV 2 DNA Result POSITIVE
--- NOTE | 2019-02-13 14:38 | ED.GENADUL_ITS ---
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: Vaginal ulceration, Intranasal ulcer Reason For Visit: vaginal sores Primary Care Provider: Alexus Cardenas ED Provider: Felisa Reeves Home Meds and New Rx's Prescriptions: New famciclovir 250 mg tablet 250 mg PO TID Qty: 30 RF: 0 Continued ferrous sulfate [Feosol] 325 mg (65 mg iron) tablet 325 mg PO DAILY RF: 0 sertraline 50 mg tablet 50 mg PO DAILY RF: 0 folic acid 1 MG tablet 1 mg PO DAILY RF: 0 ProAir RespiClick 90 MCG aerosol powdr breath activated 90 mcg Inhalation DAILY RF: 0 Discharge Instructions Instructions: Genital Herpes Simplex (ED), Urinary Tract Infection in Women (ED) Additional Instructions: Please return immediately to the emergency department if you develop any new or worsening symptoms or if you become otherwise concerned. It is extremely important that you make an appointment to be seen in follow-up for this visit by Dr. Contreras, by your hydropress operator and also by your primary care doctor. Referrals: Alexus Cardenas [Primary Care Provider] - Discharge Data Discharge Date/Time-TO BE ENTERED AT DEPARTURE: 02/05/19 16:00 Medical Decision Making Yaneli Becker is a 33-year-old woman with history of Down syndrome who presented to the emergency department with painful sores on the inside of her nose and outside of her posterior vagina since yesterday without other associated symptoms. On exam patient has intranasal ulcerations bilaterally, ulceration an d vesicles to bilateral posterior labia, and 3-4 mm round abnormality of the cervix. Patient reports that she has discussed cervical abnormality with hydropress operator before, who have told her not to worry about it. Concern for likely HSV versus other rheumatologic process causing ulcerations, benign versus neoplastic process of the cervix. Because of the vaginal culture sent, Chlamydia gonorrhea cervical culture sent, vaginal Pap screening sent. 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 Patient declined to wait for rheumatology consult and vag path screen results, and would prefer to follow-up as an outpatient. Declined empiric treatment for chlamydia/gonorrhea at this time, would prefer to wait for cultures. No urinary symptoms, will hold antibiotics for UTI and await culture results. Plan for outpatient follow-up with PCP, gynecology for cervical lesion as well as vaginal ulcerations. Plan to start famciclovir for suspected HSV. I had a lengthy discussion with the patient regarding home care, return to emergency department cautions, safe sex practices. Patient was discharged with clear plan for outpatient follow-up. Patient verbalized understanding of the plan was amenable. All questions were answered. Medical Records Medical records reviewed: Yes I reviewed the patient's medical records. Lab Data Lab results reviewed: Yes I reviewed the patient's lab results. HPI General Mode of arrival: ambulatory . Date/Time Provider Initiated Documentation: 02/05/19 13:35 . Limitations to Documentation: no limitations . Information obtained by: patient, RN notes reviewed and old records reviewed . 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 Patient reports that yesterday she noticed pain at the posterior aspect of her external vagina, much worse with urination. Patient reports that it feels like she has sores on the skin in that area. She reports pain as sharp and stabbing. She denies burning pain near the urethra with urination, frequency, or urgency. She denies abdominal pain or any other pain. No unusual vaginal discharge. No fevers. Patient reports that she feels otherwise in her usual state of health, no recent illnesses, has been eating and drinking as usual. Patient reports that she has been sexually active with her , who was released from long-term 1 week ago. Patient also reports that since noticing the vaginal pain, she has also had painful sores in the inside of her nose. Has never had either of these symptoms in the past. No known exposures, no other skin rash. Related Data Home Medications Medication Instructions Recorded Confirmed ProAir RespiClick 90 mcg INHALATION DAILY 04/11/18 02/05/19 folic acid 1 mg PO DAILY 04/11/18 02/05/19 ferrous sulfate 325 mg (65 mg 325 mg PO DAILY tab 08/03/18 02/05/19 iron) tablet sertraline 50 mg tablet 50 mg PO DAILY 08/25/18 02/05/19 famciclovir 250 mg PO TID #30 tab 02/05/19 Previous Rx's Medication Instructions Recorded famciclovir 250 mg PO TID #30 tab 02/05/19 Allergies Allergy/AdvReac Type Severity Reaction Status Date / Time vancomycin Allergy Unverified 02/05/19 12:48 oxycodone [From Percocet] AdvReac Unverified 02/05/19 12:48 General Stated Complaint: CNC MILLING MACHINIST WILBERT: 4 Review of Systems Review of Systems Constitutional: denies fevers Eyes: denies eye pain ENT: denies facial pain, dental pain, sore throat, reports nasal skin changes as per HPI Cardiovascular: denies chest pain Respiratory: denies SOB, cough GI: denies abdominal pain, vomiting, diarrhea : denies flank pain, dysuria, reports pain to external genitals MSK: denies back pain, neck pain, arthralgias, myalgias Skin: denies rash Neuro: denies headaches, numbness, weakness PFSH Medical History Pelvic pain in female (Acute) Menometrorrhagia (Acute) Hemolytic anemia (Acute) Solomon syndrome (Acute) Family History Other Breast CA Diabetes Social History Smoking/Tobacco Use Status: Never Alcohol Intake: never Drug use: Never Substance use type: does not use Do you feel safe at home: Yes Do you feel safe in your relationship?: Yes Female Reproductive History Menstrual Age of Menarche: 10 control method: none History History 5 Para Hx # Term Pregnancies 1 Multiple births Hx # Pregnancies 1 Ectopic pregnancies AB induced Hx Number of Living Children AB spontaneous Exam Narrative Exam Narrative: Constitutional: well and [id number], pleasant, conversing normally HENT: head atraumatic/normocephalic/normal inspection, mucous membranes moist, peripheral nonvesicular ulcerations to the lateral intranasal mucosa bilaterally without external skin changes. Intraoral mucosa normal without lesion. Eyes: conjunctiva normal, sclera normal, pupils 3mm b/l Neck: no stridor, normal ROM, trachea midline Chest: normal inspection Resp: normal work of breathing, LCTAB Cardio: normal rate, normal rhythm, no murmur appreciated GI: abdomen soft, non-tender, non-distended : Painful ulceration of the outer labia at the 5 o'clock position, small grouped vesicles of the outer labia at the 7 o'clock position. These are tender and pain is reproduced with palpation. Speculum exam reveals moderate amount of thin white discharge, cervix shows 3-4 mm round abnormality at the 3 o'clock po sition. There is no cervical motion tenderness, no uterine or adnexal tenderness or fullness. Skin: warm, dry, normal color, no rash Neuro: alert, not altered, grossly non-focal, normal tone Ext: no edema Psych: normal mood, normal affect, normal behavior Course Vital Signs Temperature 36.4 C L 02/05/19 12:43 Pulse 74 02/05/19 12:43 Respiratory Rate 16 02/05/19 12:43 Blood Pressure 102/65 02/05/19 12:43 Pulse Oximetry 95 02/05/19 12:43 Temperature 36.4 C L 02/05/19 12:43 Temperature Source Temporal Artery Scan 02/05/19 12:43 Pulse 74 02/05/19 12:43 Respiratory Rate 16 02/05/19 12:43 Blood Pressure 102/65 02/05/19 12:43 Pulse Oximetry 95 02/05/19 12:43 Oxygen Delivery Method Room Air 02/05/19 12:43 Oxygen Flow Rate 0 02/05/19 12:43
== END 2019-02-05 16:00 | disposition home or self-care (01) ==
PROVIDERS: Emergency Provider Student in an Organized Health Care Education/Training Program; PCP Nurse Practitioner Family
DX: N76.5 Ulceration of vagina (principal); B96.89 Other specified bacterial agents as the cause of diseases classified elsewhere; B95.1 Streptococcus, group B, as the cause of diseases classified elsewhere; J34.0 Abscess, furuncle and carbuncle of nose; Q90.9 Down syndrome, unspecified
CPT/HCPCS: 81025; 87077; 87491; 87529; 87591; 99283; 81003; 81015; 87086; 87480; 87510; 87660

== ENCOUNTER 2019-02-09 09:33 | Outpatient (CLI) | payer MEDICAID, SELFPAY ==
--- NOTE | 2019-02-09 | PFT_ITS ---
PULMONARY FUNCTION TEST REPORT Patient - Yaneli Becker 89 DATE OF SERVICE 02/09/19 REQUESTING PROVIDER Alexus Cardenas NP INTERPRETATION OF STUDY Spirometry shows no evidence of obstructive airways disease. No bronchodilator response. LUNG VOLUMES - Lung volumes show no evidence of restriction. DIFFUSION CAPACITY- Normal. AIRWAY RESISTANCE - Normal. IMPRESSION Normal pulmonary function study. Clinical correlation recommended. Katheryn Portillo M.D. ASHLEY/ DD 02/14/19 DT 02/14/19
[2019-02-09] MEDS: Albuterol HFA 18 GM 200 PUFF INH IH (16:15)
[2019-02-09] MEDS: Inhaler, Assist Device 1 EACH MC (16:15)
== END 2019-02-09 09:53 ==
PROVIDERS: PCP Nurse Practitioner Family; Visit Provider Nurse Practitioner Family
DX: J45.20 Mild intermittent asthma, uncomplicated (principal)
CPT/HCPCS: 94060; 94150; 94726; 94729

== ENCOUNTER 2019-03-09 12:54 | Outpatient (CLI) | payer MEDICAID, SELFPAY ==
[2019-03-09 13:25] LABS: Abs Immature Grans 0.02 k/cumm (0.0-0.09); Absolute Basophil Count 0.01 k/cumm (0.0-0.2); Absolute Eosinophil Count 0.17 k/cumm (0.0-0.7); Absolute Lymphocyte Count 1.08 k/cumm (1.2-3.4); Absolute Neutrophil Count 5.88 k/cumm (1.2-6.7); Basophils % 0.1; Eosinophils % 2.2; HCT 38.5 % (36.0-46.0); HGB 12.2 g/dL (12.0-15.5); Immature Grans % 0.3; Lymphocytes % 13.9; Mean Corp. HGB Concentration 31.7 g/dL (32.0-36.0); Mean Corpuscular Volume 85.2 fL (80-95); Mean Platelet Volume 11.7 fL (8.0-11.0); Monocytes % 7.7; Neutrophils % 75.8; Platelet Count 155 x1000/uL (130-400); RBC 4.52 m/cumm (4.00-5.20); RBC Distribution Width 14.4 % (11.7-14.6); Reticulocyte 3.5 % (0.5-2.4); White Blood Cell Count 7.76 k/cumm (4.4-10.8)
[2019-03-09 13:45] LABS: ALT 19 U/L (12-78); AST 12 U/L (15-37); Albumin 3.6 g/dL (3.4-5.0); Alkaline Phosphatase 84 U/L (46-116); Anion Gap 11.9 mmol/L (3-11); BUN 14 mg/dL (7-18); Bilirubin, Total 0.9 mg/dL (0.2-1.0); CO2 22.1 mmol/L (21.0-32.0); CREATININE 0.83 mg/dL (0.55-1.02); Calcium 8.3 mg/dL (8.5-10.1); Chloride 105 mmol/L (98-107); Ferritin 113 ng/mL (8-388); Glucose 112 mg/dL (70-100); Potassium 3.9 mmol/L (3.5-5.1); Sodium 139 mmol/L (136-145); Total Protein 6.1 g/dL (6.4-8.2)
[2019-03-09 14:00] LABS: LDH 183 U/L (81-234)
[2019-03-09 14:55] LABS: Iron 40 ug/dL (50-175); Total Iron Binding Capacity 301 ug/dL (250-450); Transferrin Sat 13 % (15-50)
== END 2019-03-09 13:14 ==
PROVIDERS: PCP Nurse Practitioner Family; Visit Provider Internal Medicine Hematology & Oncology
DX: D69.41 Evans syndrome (principal); D50.0 Iron deficiency anemia secondary to blood loss (chronic)
CPT/HCPCS: 36415; 80053; 82728; 83540; 83550; 83615; 85025; 85045

== ENCOUNTER 2019-04-05 13:14 | Outpatient (CLI) | payer MEDICAID, SELFPAY ==
[2019-04-05 14:03] LABS: Abs Immature Grans 0.01 k/cumm (0.0-0.09); Absolute Basophil Count 0.01 k/cumm (0.0-0.2); Absolute Eosinophil Count 0.08 k/cumm (0.0-0.7); Absolute Lymphocyte Count 1.06 k/cumm (1.2-3.4); Absolute Monocyte Count 0.49 k/cumm (0.11-0.7); Absolute Neutrophil Count 6.09 k/cumm (1.2-6.7); Basophils % 0.1; HCT 40.8 % (36.0-46.0); HGB 13.5 g/dL (12.0-15.5); Immature Grans % 0.1; Lymphocytes % 13.7; Mean Corp. HGB Concentration 33.1 g/dL (32.0-36.0); Mean Corpuscular Hemoglobin 26.5 pg (27.0-33.0); Monocytes % 6.3; Neutrophils % 78.8; RBC Distribution Width 13.1 % (11.7-14.6); Reticulocyte 1.9 % (0.5-2.4); White Blood Cell Count 7.74 k/cumm (4.4-10.8)
[2019-04-05 14:08] LABS: ALT 22 U/L (12-78); AST 14 U/L (15-37); Albumin 3.8 g/dL (3.4-5.0); Alkaline Phosphatase 84 U/L (46-116); Anion Gap 10.2 mmol/L (3-11); BUN 17 mg/dL (7-18); Bilirubin, Total 0.8 mg/dL (0.2-1.0); CO2 23.8 mmol/L (21.0-32.0); CREATININE 0.86 mg/dL (0.55-1.02); Calcium 8.5 mg/dL (8.5-10.1); Chloride 104 mmol/L (98-107); Glucose 113 mg/dL (70-100); LDH 165 U/L (81-234); Potassium 3.9 mmol/L (3.5-5.1); Sodium 138 mmol/L (136-145); Total Protein 6.3 g/dL (6.4-8.2)
[2019-04-05 14:25] LABS: Iron 50 ug/dL (50-175); Total Iron Binding Capacity 323 ug/dL (250-450); Transferrin Sat 15 % (15-50)
[2019-04-05 14:30] LABS: Platelet Count 25 x1000/uL (130-400)
[2019-04-05 14:33] LABS: Diff Comment PLT Morph Reviewed; Ferritin 58 ng/mL (8-388); Polychromasia Present
== END 2019-04-05 13:34 ==
PROVIDERS: PCP Nurse Practitioner Family; Visit Provider Internal Medicine Hematology & Oncology
DX: D69.41 Evans syndrome (principal); D50.0 Iron deficiency anemia secondary to blood loss (chronic)
CPT/HCPCS: 36415; 80053; 82728; 83540; 83550; 83615; 85025; 85045

== ENCOUNTER 2019-04-06 07:21 | Outpatient (CLI) | payer MEDICAID, SELFPAY ==
[2019-04-06 08:18] LABS: HCG Qual (Urine) Negative
== END 2019-04-06 07:41 ==
PROVIDERS: PCP Nurse Practitioner Family; Visit Provider Internal Medicine Hematology & Oncology
DX: D69.41 Evans syndrome (principal)
CPT/HCPCS: 81025

== ENCOUNTER 2019-04-11 07:36 | Outpatient (CLI) | payer MEDICAID, SELFPAY ==
[2019-04-11 08:14] LABS: Abs Immature Grans 0.01 k/cumm (0.0-0.09); Absolute Basophil Count 0.01 k/cumm (0.0-0.2); Absolute Eosinophil Count 0.05 k/cumm (0.0-0.7); Absolute Lymphocyte Count 0.59 k/cumm (1.2-3.4); Absolute Monocyte Count 0.42 k/cumm (0.11-0.7); Absolute Neutrophil Count 1.67 k/cumm (1.2-6.7); Basophils % 0.4; Eosinophils % 1.8; HCT 38.8 % (36.0-46.0); HGB 12.4 g/dL (12.0-15.5); Immature Grans % 0.4; Lymphocytes % 21.5; Mean Corpuscular Hemoglobin 26.1 pg (27.0-33.0); Mean Corpuscular Volume 81.7 fL (80-95); Monocytes % 15.3; Neutrophils % 60.6; RBC 4.75 m/cumm (4.00-5.20); RBC Distribution Width 13.1 % (11.7-14.6); Reticulocyte 1.2 % (0.5-2.4); White Blood Cell Count 2.75 k/cumm (4.4-10.8)
[2019-04-11 08:24] LABS: Iron 42 ug/dL (50-175); Total Iron Binding Capacity 287 ug/dL (250-450); Transferrin Sat 15 % (15-50)
[2019-04-11 08:30] LABS: Diff Comment Diff Reviewed; Platelet Count 54 x1000/uL (130-400); RBC Morphology Normal
[2019-04-11 08:32] LABS: ALT 30 U/L (12-78); AST 25 U/L (15-37); Albumin 3.1 g/dL (3.4-5.0); Alkaline Phosphatase 86 U/L (46-116); Anion Gap 12.1 mmol/L (3-11); BUN 13 mg/dL (7-18); Bilirubin, Total 0.4 mg/dL (0.2-1.0); CO2 21.9 mmol/L (21.0-32.0); CREATININE 0.99 mg/dL (0.55-1.02); Calcium 8.5 mg/dL (8.5-10.1); Chloride 106 mmol/L (98-107); Ferritin 86 ng/mL (8-388); Glucose 111 mg/dL (70-100); Potassium 3.4 mmol/L (3.5-5.1); Sodium 140 mmol/L (136-145); Total Protein 7.3 g/dL (6.4-8.2)
[2019-04-11 08:42] LABS: LDH 170 U/L (81-234)
[2019-04-12 09:22] LABS: Haptoglobin 91 mg/dL (32-197)
== END 2019-04-11 07:56 ==
PROVIDERS: PCP Nurse Practitioner Family; Visit Provider Internal Medicine Hematology & Oncology
DX: D69.41 Evans syndrome (principal); D50.0 Iron deficiency anemia secondary to blood loss (chronic)
CPT/HCPCS: 36415; 80053; 82728; 83010; 83540; 83550; 83615; 85025; 85045

== ENCOUNTER 2019-04-30 02:08 | Outpatient (RCR) | payer MEDICAID, SELFPAY ==
[2019-04-30 09:22] LABS: Abs Immature Grans 0.02 k/cumm (0.0-0.09); Absolute Basophil Count 0.01 k/cumm (0.0-0.2); Absolute Lymphocyte Count 1.35 k/cumm (1.2-3.4); Absolute Monocyte Count 0.69 k/cumm (0.11-0.7); Absolute Neutrophil Count 5.69 k/cumm (1.2-6.7); Basophils % 0.1; Eosinophils % 1.3; HCT 45.3 % (36.0-46.0); HGB 14.8 g/dL (12.0-15.5); Immature Grans % 0.3; Lymphocytes % 17.2; Mean Corp. HGB Concentration 32.7 g/dL (32.0-36.0); Mean Corpuscular Hemoglobin 26.1 pg (27.0-33.0); Mean Corpuscular Volume 79.8 fL (80-95); Monocytes % 8.8; Neutrophils % 72.3; RBC 5.68 m/cumm (4.00-5.20); Reticulocyte 0.8 % (0.5-2.4); White Blood Cell Count 7.86 k/cumm (4.4-10.8)
[2019-04-30 09:30] LABS: ALT 35 U/L (12-78); AST 30 U/L (15-37); Albumin 3.1 g/dL (3.4-5.0); Alkaline Phosphatase 87 U/L (46-116); Anion Gap 9.6 mmol/L (3-11); BUN 12 mg/dL (7-18); Bilirubin, Total 0.2 mg/dL (0.2-1.0); CO2 26.4 mmol/L (21.0-32.0); CREATININE 0.88 mg/dL (0.55-1.02); Calcium 8.5 mg/dL (8.5-10.1); Chloride 105 mmol/L (98-107); Glucose 84 mg/dL (70-100); LDH 146 U/L (81-234); Potassium 4.1 mmol/L (3.5-5.1); Sodium 141 mmol/L (136-145); Total Protein 7.4 g/dL (6.4-8.2)
[2019-04-30 09:47] LABS: Diff Comment PLT Morph Reviewed; RBC Morphology Normal
[2019-04-30 09:48] LABS: Platelet Count 69 x1000/uL (130-400)
[2019-04-30 09:55] LABS: Ferritin 120 ng/mL (8-388)
[2019-04-30 10:10] LABS: Iron 51 ug/dL (50-175); Total Iron Binding Capacity 345 ug/dL (250-450); Transferrin Sat 15 % (15-50)
== END 2019-05-20 23:59 | disposition home or self-care (01) ==
LOC: INF 02:08
PROVIDERS: PCP Nurse Practitioner Family; Visit Provider Internal Medicine Hematology & Oncology
DX: D69.41 Evans syndrome (principal); Z23 Encounter for immunization
CPT/HCPCS: 36415; 80053; 96372; 82728; 83540; 83550; 83615; 85025; 85045

== ENCOUNTER 2019-05-23 10:57 | Outpatient (REF) | payer MEDICAID, SELFPAY | END 2019-05-23 11:17 | LOC: LBN 10:57 | PROVIDERS: PCP Nurse Practitioner Family; Visit Provider Nurse Practitioner Family | DX: T14.8XXA Other injury of unspecified body region, initial encounter (principal) | CPT/HCPCS: 87077; 87070; 87186; 87205 ==

== ENCOUNTER 2019-07-31 15:01 | Outpatient (CLI) | payer MEDICAID, SELFPAY ==
[2019-07-31 15:36] LABS: Abs Immature Grans 0.05 k/cumm (0.0-0.09); Absolute Basophil Count 0.06 k/cumm (0.0-0.2); Absolute Eosinophil Count 0.21 k/cumm (0.0-0.7); Absolute Neutrophil Count 10.78 k/cumm (1.2-6.7); Basophils % 0.4; Eosinophils % 1.3; HCT 44.6 % (36.0-46.0); HGB 14.6 g/dL (12.0-15.5); Immature Grans % 0.3; Lymphocytes % 21.8; Mean Corp. HGB Concentration 32.7 g/dL (32.0-36.0); Mean Corpuscular Volume 85.6 fL (80-95); Mean Platelet Volume 10.6 fL (8.0-11.0); Monocytes % 8.9; Neutrophils % 67.3; Platelet Count 477 x1000/uL (130-400); RBC 5.21 m/cumm (4.00-5.20); RBC Distribution Width 15.3 % (11.7-14.6); Reticulocyte 1.6 % (0.5-2.4); White Blood Cell Count 16.02 k/cumm (4.4-10.8)
[2019-07-31 15:43] LABS: Absolute Lymphocyte Count 3.49 k/cumm (1.2-3.4); Absolute Monocyte Count 1.43 k/cumm (0.11-0.7)
[2019-07-31 16:19] LABS: ALT 50 U/L (14-59); AST 65 U/L (15-37); Albumin 3.8 g/dL (3.4-5.0); Alkaline Phosphatase 83 U/L (46-116); Anion Gap 8.8 mmol/L (3-11); BUN 11 mg/dL (7-18); Bilirubin, Total 0.5 mg/dL (0.2-1.0); CO2 27.2 mmol/L (21.0-32.0); Chloride 106 mmol/L (98-107); Glucose 83 mg/dL (70-100); LDH 272 U/L (81-234); Potassium 3.9 mmol/L (3.5-5.1); Sodium 142 mmol/L (136-145); Total Protein 6.7 g/dL (6.4-8.2)
[2019-07-31 16:54] LABS: Ferritin 53 ng/mL (8-388)
[2019-07-31 17:46] LABS: Iron 38 ug/dL (50-175); Total Iron Binding Capacity 392 ug/dL (250-450); Transferrin Sat 10 % (15-50)
== END 2019-07-31 15:21 ==
PROVIDERS: PCP Nurse Practitioner Family; Visit Provider Internal Medicine Hematology & Oncology
DX: D69.41 Evans syndrome (principal); D50.0 Iron deficiency anemia secondary to blood loss (chronic)
CPT/HCPCS: 36415; 80053; 82728; 83540; 83550; 83615; 85025; 85045